=== PATIENT | female | born 1980 | race American Indian/Alaskan Native ===

== ENCOUNTER 2016-11-10 23:18 | Emergency (ER) | payer SELFPAY ==
[2016-11-10 23:54] VITALS: BP 161/120
[2016-11-11 00:08] LABS: Basophils % (Auto) 0.9 % (0.0-1.8); Eosinophils % (Auto) 2.9 % (0.0-4.3); Hematocrit 37.7 % (30.3-42.9); Hemoglobin 12.7 gm/dl (10.1-14.3); Mean Corpuscular HGB Conc 34 % (30-34); Mean Corpuscular Hemoglobin 26 pg (28-32); Mean Corpuscular Volume 79 fl (79-97); Platelet Count 311 K/mm3 (140-440)
[2016-11-11 00:17] LABS: INR 1.02 (0.87-1.13)
[2016-11-11 00:18] LABS: Partial Thromboplastin Time 33.4 Sec. (24.2-36.6)
[2016-11-11 00:30] LABS: Anion Gap 18 mmol/L; BUN/Creatinine Ratio 8.88; Blood Urea Nitrogen 8 mg/dL (7-17); Calcium 9.2 mg/dL (8.4-10.2); Carbon Dioxide 24 mmol/L (22-30); Chloride 99.5 mmol/L (98-107); Glucose 159 mg/dL (65-100); Potassium 3.9 mmol/L (3.6-5.0); Sodium 138 mmol/L (137-145)
[2016-11-11 01:17] LABS: Bilirubin,Urine NEG (Negative); Blood,Urine NEG (Negative); Ketones,Urine NEG (Negative); Leukocyte Esterase,Urine NEG (Negative); Mucus,Urine FEW /HPF; Nitrite,Urine NEG (Negative); Protein,Urine <15 mg/dL mg/dL (Negative); Urobilinogen,Urine < 2.0 mg/dL (<2.0)
--- NOTE | 2016-11-11 08:11 | XRay Report ---
Chest 2 views. History: Chest pain. Findings: The heart and pulmonary vessels are normal. On the lateral view, there is a very small density with silhouetting of the hemidiaphragm posteriorly in the right lower lobe. No other focal pulmonary abnormalities are seen. There is no pleural fluid. Impression: Small area of atelectasis in the right lower lobe with no other significant findings.
== END 2016-11-11 01:00 | disposition left against medical advice (07) ==
LOC: ED 23:18
DX: R07.9 Chest pain, unspecified (principal); Z53.21 Procedure and treatment not carried out due to patient leaving prior to being seen by health care provider
CPT/HCPCS: 36415; 71020; 80048; 81001; 84484; 84703; 85025; 85610; 85730; 93005; 93010